=== PATIENT | female | born 1960 | race Caucasian/White ===

== ENCOUNTER 2019-08-24 15:44 | Outpatient (CLI) | payer BC, SELFPAY ==
--- NOTE | ~2019-08-24 | MM_ITS ---
EXAMINATION: screening [facility] BI w angle HISTORY: Screening mammogram TECHNIQUE: Craniocaudal and mediolateral oblique 3-D tomosynthesis images were obtained and synthetic 2-D images were generated. CAD analysis was submitted and interpreted. COMPARISON: 08/18/2018, 08/12/2017, 08/06/2017, 06/11/2016, 04/19/2014 BREAST PARENCHYMAL COMPOSITION: There are scattered areas of fibroglandular density. FINDINGS: An asymmetry of the outer left breast on the craniocaudal view has an appearance similar to prior mammograms. There is no evidence of suspicious mass, calcification, or architectural distortio n to suggest malignancy in either breast. There has been no suspicious interval change. IMPRESSION: 1. No mammographic evidence of malignancy. 2. Recommend routine screening mammography in one year. BI-RADS Category 2: Benign finding(s). Reviewed, dictated and finalized at location A.
== END 2019-08-24 15:45 | disposition home or self-care (01) ==
LOC: ANHIMG 15:48
PROVIDERS: PCP Family Medicine; Visit Provider Student in an Organized Health Care Education/Training Program
DX: Z12.31 Encounter for screening mammogram for malignant neoplasm of breast (principal)
CPT/HCPCS: 77063; 77067

== ENCOUNTER 2019-09-06 14:37 | Outpatient (CLI) | payer BC, SELFPAY ==
--- NOTE | ~2019-09-06 | DEXA_ITS ---
Bone Density Report Name: Winnie Dozier Age: 59 Sex: Female Ethnicity: White Date of : 1960 Indication: postmenopausal; Referring Provider: Selena Geronimo Study: Bone densitometry was performed. Exam Date: September 06, 2019 Accession number: [id number] Bone Density: Region BMD T-score Z-score Classification AP Spine (L1-L4) 1.409 3.3 4.5 Normal Femoral Neck (Left) 1.017 1.5 2.7 Normal Total Hip (Left) 1.183 2.0 2.8 Normal Total Hip Bilateral Avg 1.193 2.0 2.9 Normal Femoral Neck (Right) 1.077 2.1 3.2 Normal Total Hip (Right) 1.203 2.1 2.9 Normal World Health Organization criteria for BMD impression classify patients as: Normal (T-score at or above -1.0), Osteopenia (T-score between -1.0 and -2.5), or Osteoporosis (T-score at or below -2.5). 10-year Fracture Risk: FRAX not reported because: All T-scores for Spine Total, Hip Total, Femoral Neck at or above -1.0 Previous Exams: Region Exam Age BMD T-score BMD Change BMD Change Date g/cm2 vs Baseline vs Previous AP Spine(L1-L4) 09/06/2019 59 1.409 3.3 0.006(0.5%) -0.031(-2.2%)* 08/06/2017 57 1.440 3.6 0.038(2.7%)* 0.038(2.7%)* 05/08/2015 55 1.403 3.2 Total Hip(Left) 09/06/2019 59 1.183 2.0 -0.013(-1.1%) -0.003(-0.3%) 08/06/2017 57 1.186 2.0 -0.010(-0.8%) -0.010(-0.8%) 05/08/2015 55 1.196 2.1 Total Hip(Right) 09/06/2019 59 1.203 2.1 0.018(1.5%) -0.053(-4.3%)* 08/06/2017 57 1.256 2.6 0.071(6.0%)* 0.071(6.0%)* 05/08/2015 55 1.185 2.0 *Denotes significance at 95% confidence level, LSC for AP Spine = 0.022 g/cm2, LSC for Total Hip = 0.027 g/cm2 Clinical Information Provided by Patient: Has used the following medications: Vitamin D, Calcium Patient maximum height was 70 Menopause Age: 54 No regular weight bearing exercise Does not regularly consume dairy products Onset of menses at age 18 Number of children 0 Impression: The patient has normal bone mass. The BMD for the AP Spine(L1-L4) decreased, changing by -2.2% since the last DXA exam. The BMD for the Total Hip(Right) decreased, changing by -4.3% since the last DXA exam. Discussion: LOW RISK OF FRACTURE; BONE DENSITY IS WELL ABOVE THE MINIMUM DESIRABLE LEVEL AND ABOVE AVERAGE FOR AGE AND SEX AT ALL SKELETAL SITES TESTED. This person's bone density is above expected limits for age and sex. This is rarely clinically significant, but should be pursued if there are signif
== END 2019-09-06 14:38 | disposition home or self-care (01) ==
PROVIDERS: PCP Family Medicine; Visit Provider Student in an Organized Health Care Education/Training Program
DX: Z78.0 Asymptomatic menopausal state (principal)
CPT/HCPCS: 77080

== ENCOUNTER 2020-10-18 07:26 | Outpatient (CLI) | payer BC, SELFPAY ==
--- NOTE | ~2020-10-18 | MM_ITS ---
EXAMINATION: MM screening [facility] BI w angle HISTORY: Screening TECHNIQUE: Craniocaudal and mediolateral oblique 3-D tomosynthesis images were obtained and synthetic 2-D images were generated. CAD analysis was submitted and interpreted. COMPARISON: Comparison to multiple prior studies sequentially, with oldest reviewed study dated 05/16. BREAST PARENCHYMAL COMPOSITION: There are scattered areas of fibroglandular density. FINDINGS: There is no evidence of suspicious mass, calcification, or architectural distortion to sugg est malignancy in either breast. There has been no suspicious interval change. IMPRESSION: 1. No mammographic evidence of malignancy. 2. Recommend routine screening mammography in one year. BI-RADS Category 1: Negative Reviewed, dictated and finalized at location A.
== END 2020-10-18 07:27 | disposition home or self-care (01) ==
PROVIDERS: PCP Family Medicine; Visit Provider Student in an Organized Health Care Education/Training Program
DX: Z12.31 Encounter for screening mammogram for malignant neoplasm of breast (principal)
CPT/HCPCS: 77063; 77067

== ENCOUNTER 2021-12-24 15:37 | Outpatient (CLI) | payer BC, SELFPAY ==
--- NOTE | ~2021-12-24 | MM_ITS ---
EXAMINATION: MM screening [facility] BI w angle HISTORY: Screening mammogram TECHNIQUE: Craniocaudal and mediolateral oblique 3-D tomosynthesis images were obtained and synthetic 2-D images were generated. CAD analysis was submitted and interpreted. COMPARISON: 10/18/2020, 08/24/2019, 08/18/2018 BREAST PARENCHYMAL COMPOSITION: There are scattered areas of fibroglandular density. FINDINGS: There is no suspicious mass, calcification, or architectural distortion to suggest malignan cy in either breast. There has been no suspicious interval change. IMPRESSION: 1. No mammographic evidence of malignancy. 2. Recommend routine screening mammography in one year. BI-RADS Category 1: Negative Reviewed, dictated and finalized at location A.
== END 2021-12-24 15:38 | disposition home or self-care (01) ==
PROVIDERS: PCP Family Medicine; Visit Provider Student in an Organized Health Care Education/Training Program
DX: Z12.31 Encounter for screening mammogram for malignant neoplasm of breast (principal)
CPT/HCPCS: 77063; 77067

== ENCOUNTER 2021-12-25 14:05 | Outpatient (CLI) | payer BC, SELFPAY ==
--- NOTE | ~2021-12-25 | DEXA_ITS ---
Bone Density Report Name: YSABEL MCDONALD Age: 61 Sex: Female Ethnicity: White Date of : 1960 Indication: postmenopausal; screening for osteoporosis; Referring Provider: NIA HOLLINS Study: Bone densitometry was performed. Exam Date: December 25, 2021 Accession number: [id number] Bone Density: Region BMD T-score Z-score Classification AP Spine(L1-L4) 1.402 3.2 4.6 Normal Femoral Neck (Left) 0.976 1.1 2.4 Normal Total Hip (Left) 1.115 1.4 2.3 Normal Femoral Neck (Right) 1.058 1.9 3.2 Normal Total Hip (Right) 1.190 2.0 3.0 Normal Total Hip Mean 1.153 1.7 2.7 Normal World Health Organization criteria for BMD impression classify patients as: Normal (T-score at or above -1.0), Osteopenia (T-score between -1.0 and -2.5), or Osteoporosis (T-score at or below -2.5). 10-year Fracture Risk: FRAX not reported because: All T-scores for Spine Total, Hip Total, Femoral Neck at or above -1.0 Clinical Information Provided by Patient: Has used the following medications: Vitamin D, Calcium Patient maximum height was 70 Menopause Age: 54 Drinks caffeinated beverages Onset of menses at age 18 Number of children 0 Impression: The patient has normal bone mass. Discussion: LOW RISK OF FRACTURE; BONE DENSITY IS WELL ABOVE THE MINIMUM DESIRABLE LEVEL AND ABOVE AVERAGE FOR AGE AND SEX AT ALL SKELETAL SITES TESTED. This person's bone density is above expected limits for age and sex. This is rarely clinically significant, but should be pursued if there are significant musculoskeletal complaints. The patient should follow a healthful lifestyle (good nutrition with adequate calcium and vitamin D, and appropriate weight-bearing exercise). Follow-Up: Consider repeating this study in 5 years or sooner if there is some new clinical indication. Reported by: [facility] on 12/25/2021 2:27:00 PM. Reviewed, dictated and finalized at location ADeandre SERVIN
== END 2021-12-25 14:06 | disposition home or self-care (01) ==
LOC: ANHIMG 14:07
PROVIDERS: PCP Family Medicine; Visit Provider Student in an Organized Health Care Education/Training Program
DX: Z78.0 Asymptomatic menopausal state (principal)
CPT/HCPCS: 77080

== ENCOUNTER 2022-10-13 13:21 | Outpatient (CLI) | payer BC, SELFPAY ==
--- NOTE | ~2022-10-13 | XR_ITS ---
EXAM: XR abdomen/kub 1V DATE: 10/13/2022 13:45 HISTORY: BILATERAL NEPHROLITHIASIS . COMPARISON: 01/29/2018. FINDINGS: Clear lung bases. Normal bowel gas pattern. No organomegaly. Multiple bilateral renal calc ifications, similar in number to the prior study with progression of size. Largest calcification kristina ures 12 mm in the right upper pole. Pelvic phleboliths. Bone island in the right sacrum. Moderate mar ateral hip osteoarthritis. IMPRESSION: Bilateral nephrolithiasis. Reviewed, dictated and finalized at location K. IMPRESSION: Bilateral nephrolithiasis.
== END 2022-10-13 13:22 | disposition home or self-care (01) ==
PROVIDERS: PCP Family Medicine; Visit Provider Internal Medicine Nephrology
DX: N20.0 Calculus of kidney (principal)
CPT/HCPCS: 74018

== ENCOUNTER 2023-02-26 08:12 | Outpatient (CLI) | payer BC, SELFPAY ==
--- NOTE | ~2023-02-26 | MM_ITS ---
EXAMINATION: MM screening [facility] BI w angle HISTORY: Screening mammogram TECHNIQUE: Craniocaudal and mediolateral oblique 3-D tomosynthesis images were obtained and synthetic 2-D images were generated. CAD analysis was submitted and interpreted. COMPARISON: 12/24/2021, 10/18/2020, 08/24/2019, 08/18/2018 bilateral screening mammogram examinations 08/12/2017 diagnostic left mammogram 08/06/2017 bilateral screening mammogram BREAST PARENCHYMAL COMPOSITION: There are scattered areas of fibroglandular density. FINDINGS: There is no evidence of suspicious mass, calcification, or architectural distortion to sugg est malignancy in either breast. There has been no suspicious interval change. IMPRESSION: 1. No mammographic evidence of malignancy. 2. Recommend routine screening mammography in one year. BI-RADS Category 1: Negative Reviewed, dictated and finalized at location A.
== END 2023-02-26 08:13 | disposition home or self-care (01) ==
PROVIDERS: PCP Family Medicine; Visit Provider Registered Nurse
DX: Z12.31 Encounter for screening mammogram for malignant neoplasm of breast (principal)
CPT/HCPCS: 77063; 77067

== ENCOUNTER 2023-06-02 02:23 | Day surgery (SDC) | payer BC, SELFPAY ==
[2023-05-15 13:13] VITALS: BMI 29.4
--- NOTE | 2023-05-29 10:13 | SUR.PREOP ---
Patient called regarding upcoming procedure. Reviewed preop instructions, appointment times, and procedure prep.
[2023-06-02 06:59] VITALS: BP 147/73; PULSE 78; RESP 18; TEMP 36.1; O2SAT 100
--- NOTE | 2023-06-02 07:17 | WPDANESEPPF ---
Anes - Initial Pre Proc Eval Procedure: Operation Date: 06/02/23 08:00 Proposed Procedures p Screening Colonoscopy - Bakari Chaudhry MD Date/Time: 06/02/23 07:17 Surgeon: Bakari Chaudhry MD Pre Op Diagnosis: neoplasm screening Patient Data Age: 63 Gender: F Height: 1.78 m Weight: 91.3 kg Last Vital Signs Temp 36.1 C L 06/02/23 06:59 Pulse 78 06/02/23 06:59 Resp 18 06/02/23 06:59 BP 147/73 H 06/02/23 06:59 Pulse Ox 100 06/02/23 06:59 O2 Del Method Room Air 06/02/23 06:59 Allergies Allergy/AdvReac Type Severity Reaction Status Date / Time No Known Allergies Allergy Verified 06/02/23 06:58 Home Medications Medication Instructions Recorded Confirmed Type aspirin 81 mg tablet,delayed 81 mg PO DAILY 05/26/19 06/01/23 History release (Adult Low Dose Aspirin) vitamin B complex (B 1 tablet PO DAILY 08/16/19 06/02/23 History Complex-Vitamin B12 tablet) lactobacillus combination no.9 4 4,000 mmu cells PO DAILY 08/21/20 06/01/23 History billion cell capsule (Adult 50 Plus Probiotic) calcium carbonate 600 mg calcium 600 mg PO DAILY 01/10/21 06/01/23 History (1,500 mg) tablet (Calcium) cholecalciferol (vitamin D3) 25 25 mcg PO .every other day 01/10/21 06/01/23 History mcg (1,000 unit) capsule clotrimazole-betamethasone 1 1 applic topical BID #45 grams 05/29/22 06/01/23 Rx %-0.05 % topical cream dulaglutide 1.5 mg/0.5 mL 1.5 mg (0.5 mL) subcut WEEKLY #6 mL 09/29/22 06/01/23 Rx subcutaneous pen injector (Trulicity) potassium citrate 10 mEq (1,080 20 meq PO BID 09/29/22 06/02/23 History mg) tablet,extended release dapagliflozin propaned 5 2 tablet PO DAILY #180 ea 04/07/23 06/02/23 Rx mg-metformin ER 1,000 mg tablet, ext rel 24hr (Xigduo XR) levothyroxine 112 mcg tablet 112 mcg PO DAILY #90 tabs 04/07/23 06/01/23 Rx Patient hx anesthesia problems: none Family hx anesthesia problems: none Results Review: All pre-operative results and documents have been reviewed as part of the pre-operative evaluation. [facility] Past Medical History Medical History BMI 28.0-28.9,adult BMI 29.0-29.9,adult BMI 31.0-31.9,adult BMI greater than 30 Bone spur of ankle DM w/o complication type II Essential (primary) hypertension Hypothyroidism Mixed hyperlipidemia Need for vaccination Surgical History Surgical History History of appendectomy History of back surgery History of foot surgery Hx of colonoscopy Family History Family History Mother Hypertension Father Hypertension Family history of diabetes mellitus in first degree relative Family history of throat cancer Diabetes mellitus Sibling Hypertension Social History Social History Smoking status: Never smoker Second hand tobacco smoke exposure: Yes Alcohol intake: current Alcohol use details: occasional 1-2 per month Substance use: never Substance use type: does not use Do You Feel Safe in your Home?: Yes Lack of Transportation: No Lack of Food: Never True Current Housing: I Have Housing Concerned About Future Housing: No Difficulty Paying Gas/Electric Bills: No Difficulty Paying for Meds: No Currently Unemployed: No Education: Bachelor's Degree Difficulty w/ Childcare or Family Care: No Living arrangements: alone Occupation/Education: retired 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 Gender identity (if verbalized by the patient): Female Spiritual care concerns: No Anes - Eval Final PreProcedure Day of Procedure 06/02/23 07:17 Patient weight: overweight Heart: regular rate and rhythm Lungs: clear to auscultation Airway: Mallampati scale class II Neurological: alert and oriented Last oral intake
[2023-06-02] MEDS: LACTATED RINGERS 1,000 ML 150 ML IV CONT (07:18)
[2023-06-02 07:19] LABS: Glucose Point of Care 128 mg/dl (65-105)
--- NOTE | 2023-06-02 07:27 | PM.HPGS ---
History of Present Illness History of Present Illness Consent: Risks, benefits, and alternatives have been discussed and questions answered. Patient agrees to proceed with procedure. Chief complaint: neoplasm screening Narrative: Winnie Dozier is a 63 year old female Presents for screening colonoscopy. Patient's current weight appetite and bowel movements are normal. Patient denies abdominal pain. She has had no bleeding. Family history noncontributory. Previous colonoscopy 10 years ago was unremarkable. Review of Systems Review of Systems: Review of systems noncontributory. [facility] Past Medical History Medical History BMI 28.0-28.9,adult BMI 29.0-29.9,adult BMI 31.0-31.9,adult BMI greater than 30 Bone spur of ankle DM w/o complication type II Essential (primary) hypertension Hypothyroidism Mixed hyperlipidemia Need for vaccination Surgical History Surgical History History of appendectomy History of back surgery History of foot surgery Hx of colonoscopy Family History Family History Mother Hypertension Father Hypertension Family history of diabetes mellitus in first degree relative Family history of throat cancer Diabetes mellitus Sibling Hypertension Social History Social History Smoking status: Never smoker Second hand tobacco smoke exposure: Yes Alcohol intake: current Alcohol use details: occasional 1-2 per month Substance use: never Substance use type: does not use Do You Feel Safe in your Home?: Yes Lack of Transportation: No Lack of Food: Never True Current Housing: I Have Housing Concerned About Future Housing: No Difficulty Paying Gas/Electric Bills: No Difficulty Paying for Meds: No Currently Unemployed: No Education: Bachelor's Degree Difficulty w/ Childcare or Family Care: No Living arrangements: alone Occupation/Education: retired 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 Gender identity (if verbalized by the patient): Female Spiritual care concerns: No Meds Home Medications and Allergies Home Medications Medication Instructions Recorded Confirmed Type aspirin 81 mg tablet,delayed 81 mg PO DAILY 05/26/19 06/01/23 History release (Adult Low Dose Aspirin) vitamin B complex (B 1 tablet PO DAILY 08/16/19 06/02/23 History Complex-Vitamin B12 tablet) lactobacillus combination no.9 4 4,000 mmu cells PO DAILY 08/21/20 06/01/23 History billion cell capsule (Adult 50 Plus Probiotic) calcium carbonate 600 mg calcium 600 mg PO DAILY 01/10/21 06/01/23 History (1,500 mg) tablet (Calcium) cholecalciferol (vitamin D3) 25 25 mcg PO .every other day 01/10/21 06/01/23 History mcg (1,000 unit) capsule clotrimazole-betamethasone 1 1 applic topical BID #45 grams 05/29/22 06/01/23 Rx %-0.05 % topical cream dulaglutide 1.5 mg/0.5 mL 1.5 mg (0.5 mL) subcut WEEKLY #6 mL 09/29/22 06/01/23 Rx subcutaneous pen injector (Trulicity) potassium citrate 10 mEq (1,080 20 meq PO BID 09/29/22 06/02/23 History mg) tablet,extended release dapagliflozin propaned 5 2 tablet PO DAILY #180 ea 04/07/23 06/02/23 Rx mg-metformin ER 1,000 mg tablet, ext rel 24hr (Xigduo XR) levothyroxine 112 mcg tablet 112 mcg PO DAILY #90 tabs 04/07/23 06/01/23 Rx Allergies Allergy/AdvReac Type Severity Reaction Status Date / Time No Known Allergies Allergy Verified 06/02/23 06:58 Vital Signs Vital Signs - 24 hr 06/02/23 06:59 Temperature 96.9 F L Pulse Rate 78 Respiratory Rate 18 Blood Pressure 147/73 H Pulse Oximetry 100 Oxygen Delivery Room Air Exam Narrative: Physical exam reveals patient to be alert. Vital signs stable. HEENT exam is unremarkable. Patient is
[2023-06-02 08:38] VITALS: BP 103/52; PULSE 80; RESP 20; O2SAT 100
[2023-06-02 08:48] VITALS: BP 106/67; PULSE 76; RESP 17; O2SAT 100
[2023-06-02 08:58] VITALS: BP 119/78; PULSE 72; RESP 17; O2SAT 100
== END 2023-06-02 09:05 | disposition home or self-care (01) ==
PROVIDERS: PCP Family Medicine; Visit Provider Internal Medicine Gastroenterology
PROC: 0DJD8ZZ Inspection of Lower Intestinal Tract, Via Natural or Artificial Opening Endoscopic (ICD-10-PCS; CPT 45378; principal; 2023-06-02 08:00)
DX: Z12.11 Encounter for screening for malignant neoplasm of colon (principal); D12.2 Benign neoplasm of ascending colon; D12.4 Benign neoplasm of descending colon; D12.5 Benign neoplasm of sigmoid colon; K62.1 Rectal polyp; K57.30 Diverticulosis of large intestine without perforation or abscess without bleeding; K64.8 Other hemorrhoids; I10 Essential (primary) hypertension; E03.9 Hypothyroidism, unspecified; E78.2 Mixed hyperlipidemia; E11.9 Type 2 diabetes mellitus without complications; Z79.82 Long term (current) use of aspirin; Z79.84 Long term (current) use of oral hypoglycemic drugs; Z79.85 Long-term (current) use of injectable non-insulin antidiabetic drugs
CPT/HCPCS: 45385; 82948; 88305; J2704; J7120

== ENCOUNTER 2024-01-30 09:38 | Outpatient (CLI) | payer BC, SELFPAY ==
--- NOTE | ~2024-01-30 | XR_ITS ---
XR abdomen/kub 1V DATE: 01/30/2024 10:04 INDICATION: Bilateral nephrolithiasis TECHNIQUE: 2 AP views COMPARISON: 10/13/2022 KUB FINDINGS: Numerous bilateral renal calcifications are again noted, relatively stable in number and di stribution since 10/13/2022. No calcifications are noted overlying the course of the ureters. No visceromegaly is evident. Psoas shadows are intact. No evidence of bowel obstruction. Included skeletal structures are unremarkable other than prominent bilateral hip osteoarthritis. IMPRESSION: Persistent extensive bilateral nephrolithiasis Reviewed, dictated and finalized at Location A. Reviewed, dictated and finalized at location J.
== END 2024-01-30 09:39 | disposition home or self-care (01) ==
PROVIDERS: PCP Family Medicine; Visit Provider Internal Medicine Nephrology
DX: N20.0 Calculus of kidney (principal)
CPT/HCPCS: 74018

== ENCOUNTER 2024-03-15 14:37 | Outpatient (CLI) | payer BC, SELFPAY ==
--- NOTE | ~2024-03-15 | MM_ITS ---
EXAMINATION: MM screening van BI w angle HISTORY: Screening TECHNIQUE: Craniocaudal and mediolateral oblique 3-D tomosynthesis images were obtained and synthetic 2-D images were generated. CAD analysis was submitted and interpreted. COMPARISON: Comparison to multiple prior studies sequentially, with oldest reviewed study dated 11/2018. BREAST PARENCHYMAL COMPOSITION: Not dense: There are scattered areas of fibroglandular density. FINDINGS: There is no evidence of suspicious mass, calcification, or architectural distortion to sugg est malignancy in either breast. There has been no suspicious interval change. IMPRESSION: 1. No mammographic evidence of malignancy. 2. Recommend routine screening mammography in one year. BI-RADS Category 1: Negative Reviewed, dictated and finalized at location B.
== END 2024-03-15 14:38 | disposition home or self-care (01) ==
PROVIDERS: PCP Family Medicine; Visit Provider Nurse Practitioner Family
DX: Z12.31 Encounter for screening mammogram for malignant neoplasm of breast (principal)
CPT/HCPCS: 77063; 77067

== ENCOUNTER 2024-08-22 12:25 | Outpatient (CLI) | payer BC, SELFPAY ==
--- NOTE | ~2024-08-22 | MR_ITS ---
EXAMINATION: MR abdomen wo/w con DATE: 08/22/2024 14:03 INDICATION: Hepatomegaly, not elsewhere classified. TECHNIQUE: Magnetic resonance imaging (MRI) of the abdomen was performed without and with 20 mL Multi Licha intravenous contrast. COMPARISON: Abdomen MRI 04/05/2010 FINDINGS: There is diffuse hepatic steatosis. There is a 6 mm cyst in the liver. The gallbladder, spleen, pancr eas, and adrenal glands are normal. There is cortical thinning of the kidneys. There are no dilated l oops of bowel. There is diverticulosis of the colon without evidence of diverticulitis. There are no pathologically enlarged lymph nodes. There is no free intraperitoneal fluid. IMPRESSION: 1. Diffuse hepatic steatosis. Reviewed, dictated and finalized at location B.
--- OUTSIDE RECORDS SUMMARY | 2024-08-22 14:21 | XMS_ITS | Clinical Summary ---
Author Organization [facility] Address [address] [place] [address] Care Team Providers Care Children'S Tutor Name Role Phone Saman Greene MD Primary Care Provider [phone] Thuy Davey MD Unavailable [phone] Allergies No known active allergies Medications levothyroxine 112 MCG tablet Take 112 mcg by mouth every morning. Active potassium citrate CR 10 MEQ (1080 MG) tablet Take 20 mEq by mouth 2 (two) times daily. Active SITagliptin-met FORMIN HCl (JANUMET XR OR)Indications: states this is 50 mg tabs Take 2 tablets by mouth nightly. Indications: states this is 50 mg tabs Active Dapagliflozin Propanediol (FARXIGA) 10 MG Tab Take 10 mg by mouth daily. Active aspirin EC (ASPIRIN EC) 81 MG tablet Take 81 mg by mouth daily. Active B complex-C Cap capsule Take 1 capsule by mouth daily. Active calcium carb-cholecalci ferol 600-800 MG-UNIT tablet Take 1 tablet by mouth nightly. Active vitamin D3, cholecalciferol , 1000 UNIT Tab tabletIndicatio ns:every other evening Take 1 tablet by mouth see administration instructions. Indications: every other evening Active probiotic capsule Take 1 capsule by mouth nightly. Active ibuprofen 200 MG tablet Take 400 mg by mouth every 6 (six) hours as needed for Pain. Active acetaminophen 500 MG tablet Take 1,000 mg by mouth every 6 (six) hours as needed for Pain. Active HYDROcodone-kaila taminophen 5-325 MG tabletIndicatio ns:Acute Pain < 7 Day Supply Take 1 tablet by mouth every 6 (six) hours as needed for Pain. Indications: Acute Pain < 7 Day Supply 20 tablet 03/02/20 20 Active ibuprofen 800 MG tablet Take 1 tablet (800 mg total) by mouth every 8 (eight) hours as needed for Pain. 30 tablet 03/02/20 20 Active Active Problems No known active problems Family History Medical History Relation Comments Cancer Father liver cancer Hypertension Father Kidney Disease Father kidney stones Hypertension Mother Hypertension Sister Relation Status Comments Father (Age 66) of liver cancer Mother Alive Sister Social History Tobacco Use Types Packs/Day Years Used Date Smoking Tobacco: Never Smokeless Tobacco: Never Alcohol Use Standard Drinks/Week Comments Yes 1 (1 standard drink = 0.6 oz pur e alcohol) 3 or less drinks a month Comments No Sex and Gender Information Value Date Recorded Sex Assigned at Not on file Legal Sex Female 10:05 AM CDT Gender Identity Not on file Sexual Orientation Not on file Last Filed Vital Signs Vital Sign Reading Time Taken Comments Blood Pressure 147/66 03/02/2020 10:43 AM CDT Pulse 63 03/02/2020 10:43 AM CDT Temperature 36.7 C (98 F) 03/02/2020 10:43 AM CDT Respiratory Rate 14 03/02/2020 10:43 AM CDT Oxygen Saturation 96% 03/02/2020 10:43 AM CDT Inhaled Oxygen Concentration - - Weight 102.1 kg (225 lb) 02/27/2020 8:49 AM CDT Height 177.8 cm (5' 10 ) 02/27/2020 8:49 AM CDT Body Mass Index 32.28 02/27/2020 8:49 AM CDT Plan of Treatment Health Maintenance Due Date Last Done Comments Cervical Cancer Screening Pa p Smear (Age 30 to 64) Every 3 Years 1960 Colorectal Cancer Screening Colonoscopy (10 Years) 1962 Annual Physical 1965 Hepatitis C 1980 DTaP, Tdap and Td Vaccines ( 1 - Tdap) 1981 Cervical Cancer Screening Pa p with HPV Testing (Age 30 to 64) Every 5 Years 1992 Cervical Cancer Screening with HPV 1992 Mammogram Screening 2002 Zoster Vaccines (1 of 2) 2012 COVID-19 Vaccine (2023-2 5 season) 2024 Influenza Adult (#1) 2024 03/26/2019 RSV Immunization or 60+ Years (1 - 1-dose 75+ series) 2037 Meningococcal B Vaccine Aged Out No l onger eligible based on patient's age to complete this topic Meningococcal Vaccine Aged Out No betzy lachelle eligible based on patient's age to complete this topic Pneumococcal Vaccine: Pediat rics (0 to 5 Years) and At-Risk Patients (6 to 64 Years) Aged Out No longer eligi ble based on patient's age to complete this topic RSV Immunizations Under 20 Months Aged Out No longer eligible based on patient's age to complete this topic Medical Devices Implanted Type Area [employer] Round Attendant Device Identifier Shelf Expiration Date Model / Serial / Lot [employer] Suture [place] Suture #0 Implanted:Qty: 2 on 03/02/2020 by John Salmeron DPM at [facility] Right: [facility] [employer] 12/17/2024 [id number] / / [id number] [place] [address] [address] [place] [address] Care Teams Children'S Tutor Relationship Specialty Start Date End Date Saman Greene [place] [address] [address] PCP - General FAMILY PRACTICE 02/27/20 Thuy Dave[place] [address] [address] Referring Physician NEPHROLOGY 02/27/20
== END 2024-08-22 12:26 | disposition home or self-care (01) ==
PROVIDERS: PCP Family Medicine; Visit Provider Family Medicine
DX: R16.0 Hepatomegaly, not elsewhere classified (principal); K76.0 Fatty (change of) liver, not elsewhere classified
CPT/HCPCS: 74183; A9577

== ENCOUNTER 2024-11-01 12:41 | Outpatient (CLI) | payer BC, SELFPAY ==
--- NOTE | ~2024-11-01 | DEXA_ITS ---
Bone Density Report Name: YSABEL MCDONALD Age: 64 Sex: Female Ethnicity: White Date of : 1960 Indication: postmenopausal; screening for osteoporosis; Referring Provider: ELVIN CORDOVA Study: Bone densitometry was performed. Exam Date: November 01, 2024 Accession number: [id number] Bone Density: Region BMD T-score Z-score Classification AP Spine(L1-L4) 1.368 2.9 4.5 Normal Femoral Neck (Left) 1.044 1.8 3.1 Normal Total Hip (Left) 1.174 1.9 3.0 Normal Femoral Neck (Right) 1.056 1.9 3.3 Normal Total Hip (Right) 1.197 2.1 3.2 Normal Total Hip Mean 1.185 2.0 3.1 Normal World Health Organization criteria for BMD impression classify patients as: Normal (T-score at or above -1.0), Osteopenia (T-score between -1.0 and -2.5), or Osteoporosis (T-score at or below -2.5). 10-year Fracture Risk: FRAX not reported because: All T-scores for Spine Total, Hip Total, Femoral Neck at or above -1.0 Previous Exams: Region Exam Age BMD T-score BMD Change BMD Change Date g/cm2 vs Baseline vs Previous AP Spine (L1-L4) 11/01/2024 64 1.368 2.9 -0.035 (-2.5%) -0.034 (-2.4%) 12/25/2021 61 1.402 3.2 -0.001 (0.0%) -0.007 (-0.5%) 09/06/2019 59 1.409 3.3 0.006 (0.5%) -0.031 (-2.2%) 08/06/2017 57 1.440 3.6 0.038 (2.7%)* 0.038 (2.7%)* 05/08/2015 55 1.403 3.2 Total Hip(Left) 11/01/2024 64 1.174 1.9 -0.022 (-1.8%) 0.059 (5.2%)* 12/25/2021 61 1.115 1.4 -0.080 (-6.7%) -0.067 (-5.7%) 09/06/2019 59 1.183 2.0 -0.013 (-1.1%) -0.003 (-0.3%) 08/06/2017 57 1.186 2.0 -0.010 (-0.8%) -0.010 (-0.8%) 05/08/2015 55 1.196 2.1 Total Hip(Right) 11/01/2024 64 1.197 2.1 0.012 (1.0%) 0.007 (0.5%) 12/25/2021 61 1.190 2.0 0.006 (0.5%) -0.012 (-1.0%) 09/06/2019 59 1.203 2.1 0.018 (1.5%) -0.053 (-4.3%) 08/06/2017 57 1.256 2.6 0.071 (6.0%)* 0.071 (6.0%)* 05/08/2015 55 1.185 2.0 *Denotes significance at 95% confidence level, LSC for AP Spine = 0.022 g/cm2, LSC for Total Hip = 0.027 g/cm2 Clinical Information Provided by Patient: Has used the following medications: Vitamin D, Calcium Patient maximum height was 70 Menopause Age: 54 Drinks caffeinated beverages Onset of menses at age 18 Number of children 0 Impression: The patient has normal bone mass. The BMD for the AP Spine (L1-L4) decreased, changing by -2.4% since the last DXA exam. Discussion: LOW RISK OF FRACTURE; BONE DENSITY IS WELL ABOVE THE MINIMUM DESIRABLE LEVEL AND ABOVE AVERAGE FOR AGE AND SEX AT ALL SKELETAL SITES TESTED. This person's bone density is above expected limits for age and sex. This is rarely clinically significant, but should be pursued if there are significant musculoskeletal complaints. The patient should follow a healthful lifestyle (good nutrition with adequate calcium and vitamin D, and appropriate weight-bearing exercise). Follow-Up: Consider repeating this study in 3 to 4 years to reassess this patient's status, or sooner if there is some new clinical indication. Reported by: FIDE on 11/01/2024 1:20:00 PM. Reviewed, dictated and finalized at location A.
--- OUTSIDE RECORDS SUMMARY | 2024-11-01 12:44 | XMS_ITS ---
Author Organization [facility] Address [address] [place] [phone] Care Team Providers Care Operational Risk Manager Name Role Phone Saman Greene Primary Care Provider TONY Brink Unavailable [phone] Medications Medication SIG (Take, Route, Frequency, Duration) Notes Start Date End Date Status Synthroid 112 MCG 1 tablet in the morn ing on an empty stomach Orally Once a day Active Potassium Citrate ER 10 MEQ (1080 MG) 2 Orally TWICE A DAY Active Xigduo XR 2.5-1000 MG 1 tablet Orally Once a day Active Trulicity 1.5 MG/0.5ML as directed Subcutaneous Active Aspir-Low 81 MG 1 tablet Orally Once a day Active Potassium Citrate 10 MEQ 2 TABD Orally T WICE A DAY for 90 days 09/04/2022 Active Vitamin B Complex-C - as directed Orally Active Calcium 600 MG 1 tablet with meals Orally Twice a day Active Vitamin D3 3994394 UNIT/GM as directed Active Probiotic 250 MG as directed Orally Active Social History Sex Assigned At : Social History Observation Description Sex Assigned At Female Encounters Encounter Location Date Provider Diagnosis [facility] [address] [place] [address] [phone] 12/30/2023 TONY DAVEY Bilateral nephrolithiasis N20.0 ; Type 2 diabetes mellitus without complication, without long-term current use of insulin E11.9 ; Benign essential hypertension I10 and Acquired hypothyroidism E03.9 Assessments Encounter Date Diagnosis (ICD Code) Assessment Notes Treatment Notes Treatment Clinical Notes Section Notes 12/30/2023 Bilateral nephrolithiasis (ICD-10 - N20.0) 12/30/2023 Type 2 diabetes mellitus without complication, without long-term current use of insulin (ICD-10 - E11.9) 12/30/2023 Benign essential hypertension (ICD-10 - I10) 12/30/2023 Acquired hypothyroidism (ICD-10 - E03.9) Plan Of Treatment Pending Test Test Name Order Date Uric Acid, Serum 12/30/2023 Urinalysis, Complete 12/30/2023 Comp. Metabolic Panel (14) 12/30/2023 X ray : Kidneys, Ureters and Bladder (KU B) 12/30/2023 [id number]/RANDOM 12/30/2023 Next Appt Details Follow Up: 1 Year,you are do ing excellent- keep up the good work and keep taking your Potassium Citrate., Reason: Progress Notes * Winnie MCDONALDDOB:[birth year] (64 yo F)Acc No.[id number]:12/30/2023 Progress Notes Patient: Winnie ALVARADO Provider: Bulmaro Davey MD :1960 A ge:63 Y S ex:Female Date:12/30/2023 Address:[address] [place], [place] [id number] Pcp:Saman Greene Subjective: * Chief Complaints: * * Medical History: * Medications: T aking Probiotic 250 MG Capsule as directed Orally , Taking Vitamin D3 8259495 UNIT/GM Liquid as directed , Taking Calcium 600 MG Tablet 1 tablet with meals Orally Twice a day , Taking Vitamin B Complex-C - Capsule as directed Orally , Taking Aspir-Low 81 MG Tablet Delayed Release 1 tablet Orally Once a day , Taking Trulicity 1.5 MG/0.5ML Solution Pen-injector as directed Subcutaneous , Taking Xigduo XR 2.5-1000 MG Tablet Extended Release 24 Hour 1 tablet Orally Once a day , Taking Potassium Citrate ER 10 MEQ (1080 MG) Tablet Extended Release 2 Orally TWICE A DAY , Taking Synthroid 112 MCG Tablet 1 tablet in the morning on an empty stomach Orally Once a day , Taking Potassium Citrate 10 MEQ Tablet 2 TABD Orally TWICE A DAY Objective: * Vitals: Assessment: * Assessment: 1. B ilateral nephrolithiasis - N20.0 (Primary) 2 . T ype 2 diabetes mellitus without complication, without long-term current use of insulin - E11.9 3 . B enign essential hypertension - I10 4 . A cquired hypothyroidism - E03.9 ? Plan: * Treatment: * Follow Up: 1 Year,you are doing excellent- keep up the good work and keep taking your Potassium Citrate. * Billing Information: * Visit Code: 48317 Office Visit, Est Pt., Level 3. * Procedure Codes: * Electronic signature of PAWAN DAVEY MD on 11/01/2024 at 12:44 PM CDT Sign off status: Pending * Provider: Bulmaro Davey MD Date: 0 12/30/2023 Generated for Citlalli mcknight/Ann-Marie/Benito on: 0 11/01/2024 12:44 PM CDT
--- OUTSIDE RECORDS SUMMARY | 2024-11-01 12:44 | XMS_ITS | Clinical Summary ---
Author Organization [facility] Address [facility] [place] [address] Care Team Providers Care Seam Sewer Name Role Phone Saman Greene MD Primary Care Provider [phone] Thuy Davey MD Unavailable [phone] Allergies No known active allergies Medications levothyroxine [...] Screening with HPV 1992 Mammogram Screening 2002 Pneumococcal Vaccine: 50+ Ye ars (1 of 1 - PCV) 2012 Zoster Vaccines (1 of 2) 2012 COVID-19 Vaccine (2023-2 5 season) 2024 RSV Immunization or 60+ Years (1 - [...] this topic Medical Devices Implanted Type Area Golf Course Keeper Device Identifier Shelf Expiration Date Model / Serial / Lot Soldier Suture [place] Suture #0 Implanted:Qty: 2 on 03/02/2020 by John Salmeron DPM at [facility] Right: Laurie Doximity 12/17/2024 [id number] / / [id number] Insurance [facility] Care Teams Seam Sewer Relationship Specialty Start Date End Date Saman Greene [place] [address] [address] PCP - General FAMILY PRACTICE 02/27/20 Thuy Davey [place] [address] [address] Referring Physician NEPHROLOGY 02/27/20
--- OUTSIDE RECORDS SUMMARY | 2024-11-01 12:45 | XMS_ITS ---
Author Organization [facility] Address [address] [place] [phone] Care Team Providers Care Restaurant Cook Name Role Phone Saman Greene Primary Care Provider TONY Brink Unavailable [phone] Allergies No Known Allergies Medications Medication SIG (Take, Route, Frequency, Duration) [...] 1 tablet Orally Once a day Active Vitamin B Complex-C - as directed Orally Active Calcium 600 MG 1 tablet with meals Orally Twice a day Active Vitamin D3 7761856 UNIT/GM as directed Active Probiotic 250 MG as directed Orally Active Social History Sex Assigned At : Social History Observation Description Sex Assigned At Female Vital Signs Blood pressure systolic 126 mm Hg 12/30/19 24 Blood pressure diastolic 74 mm Hg 024 Heart Rate 88 /min 12/30/2023 Respiratory Rate 18 /min 12/30/2023 Temperature 97.3 degrees Fahrenheit 12/30/19 24 Oximetry 98 % 12/30/2023 Weight 202 lbs 12/30/2023 Weight-kg 91.63 kg 12/30/2023 Encounters Encounter Location Date Provider Diagnosis [facility] [address] [place] [phone] 12/30/2023 TONY DAVEY Bilateral nephrolithiasis N20.0 ; [...] Complete 12/30/2023 Comp. Metabolic Panel (14) 12/30/2023 2-Zqgusb-kyagjzgwe,Qn,24hr,Ur 12/30/2023 X ray : Kidneys, Ureters and Bladder (KU B) 12/30/2023 [id number]-NCBY/RANDOM 12/30/2023 Next Appt Details Follow Up: 1 Year,You are do ing awesome- Keep taking your potassium citrate and let's check on your stone burden., Reason: Progress Notes * Winnie MCDONALDDOB:[birth year] (64 yo F)Acc No.[id number]:12/30/2023 Progress Notes Patient: Winnie ALVARADO Provider: Bulmaro Davey MD :1960 A ge:63 Y S ex:Female Date:12/30/2023 Address:[address] [place], [place] [phone] Pcp:Saman Greene Subjective: * Chief Complaints: * * Medical History: M edical History Verified. * Surgical History: D enies Past Surgical History. * Hospitalization/Major Diagno stic Procedure: D enies Past Hospitalization. * Family History: N on-Contributory. * Medications: T aking Probiotic 250 MG Capsule as directed Orally , Taking Vitamin D3 1700429 UNIT/GM Liquid as directed , Taking Calcium [...] empty stomach Orally Once a day , Medication List reviewed and reconciled with the patient * Allergies: N .K.D.A. Objective: * Vitals: B P:126/74mm Hg, HR:88/min, RR:18/min, Temp:97.3F, Oxygen sat %:98%, Wt:202lbs, Wt-k.63 kg. Assessment: * Assessment: 1. B ilateral nephrolithiasis - N20.0 (Primary) 2 . T ype 2 diabetes mellitus without complication, without long-term current use of insulin - E11.9 3 . B enign essential hypertension - I10 4 . A cquired hypothyroidism - E03.9 ? Plan: * Treatment: 2.?Type 2 diabetes mellitus without complication, without long-term current use of insulin?LAB: Urinalysis, Complete ?LAB: Comp. Metabolic Panel (14) ?LAB: [id number]-XCTAGIT-NGWT/RANDOM * Labs: * L ab: 0-Uvauxb-dlsfhqdmq,Qn,24hr,Ur * Follow Up: 1 Year,You are doing awesome- Keep taking your potassium citrate and let's check on your stone burden. * Billing Information: * Visit Code: * Procedure Codes: * Electronic signature of PAWAN DAVEY MD on 11/01/2024 at 12:44 PM CDT Sign off status: Pending * Provider: Bulmaro Davey MD Date: 0 12/30/2023 Generated for Citlalli mcknight/Ann-Marie/Nubiasmitting on: 0 11/01/2024 12:44 PM CDT
--- OUTSIDE RECORDS SUMMARY | 2024-11-01 12:45 | XMS_ITS ---
Author Organization [facility] Address [address] [place] [phone] Care Team Providers Care Business Intelligence Director Name Role Phone Saman Greene Primary Care Provider TONY Brink Unavailable [phone] Medications Medication SIG (Take, Route, Frequency, Duration) Notes Start Date End Date Status Potassium Citrate ER 10 MEQ (1080 MG) 2 Orally TWICE A DAY for 90 days Active Potassium Citrate 10 MEQ 2 TABD Orally T WICE A DAY for 90 days 09/04/2022 Active Trulicity 1.5 MG/0.5ML as directed Subcutaneous Active Xigduo XR 2.5-1000 MG 1 tablet Orally Once a day Active Synthroid 112 MCG 1 tablet in the morn ing on an empty stomach Orally Once a day Active Vitamin D3 0349161 UNIT/GM as directed Active Probiotic 250 MG as directed Orally Active Vitamin B Complex-C - as directed Orally Active Calcium 600 MG 1 tablet with meals Orally Twice a day Active Aspir-Low 81 MG 1 tablet Orally Once a day Active Social History Sex Assigned At : Social History Observation Description Sex Assigned At Female Encounters Encounter Location Date Provider Diagnosis [facility] [address] [place] [phone] 08/12/2024 TONY DAVEY Plan Of Treatment Medication Medication Name Sig Start Date Stop Date Notes Potassium Citrate ER 10 MEQ (1080 MG) 2 Orally TWICE A DAY for 90 days Progress Notes * Winnie MCDONALDDOB:[birth year] (64 yo F)Acc No.[id number]:08/12/2024 Progress Notes Patient: Winnie ALVARADO Provider: Bulmaro Davey MD :1960 A ge:64 Y S ex:Female Date:08/12/2024 Address:[address] [place], [place] [phone] Pcp:Saman Greene Subjective: * Chief Complaints: * * HPI: T ransition of Care: refill of POTASSIUM CITRATE and send to new pharmacy [address] * Medical History: * Surgical History: * Hospitalization/Major Diagno stic Procedure: * Medications: T akingProbiotic 250 MG Capsule as directed Orally Vitamin D3 0298841 UNIT/GM Liquid as directed Calcium 600 MG Tablet 1 tablet with meals Orally Twice a day Vitamin B Complex-C - Capsule as directed Orally Aspir-Low 81 MG Tablet Delayed Release 1 tablet Orally Once a day Trulicity 1.5 MG/0.5ML Solution Pen-injector as directed Subcutaneous Xigduo XR 2.5-1000 MG Tablet Extended Release 24 Hour 1 tablet Orally Once a day Potassium Citrate ER 10 MEQ (1080 MG) Tablet Extended Release 2 Orally TWICE A DAY Synthroid 112 MCG Tablet 1 tablet in the morning on an empty stomach Orally Once a day Potassium Citrate 10 MEQ Tablet 2 TABD Orally TWICE A DAY Taking Probiotic 250 MG Capsule as directed Orally Taking Vitamin D3 6799744 UNIT/GM Liquid as directed Taking Calcium 600 MG Tablet 1 tablet with meals Orally Twice a day Taking Vitamin B Complex-C - Capsule as directed Orally Taking Aspir-Low 81 MG Tablet Delayed Release 1 tablet Orally Once a day Taking Trulicity 1.5 MG/0.5ML Solution Pen-injector as directed Subcutaneous Taking Xigduo XR 2.5-1000 MG Tablet Extended Release 24 Hour 1 tablet Orally Once a day Taking Potassium Citrate ER 10 MEQ (1080 MG) Tablet Extended Release 2 Orally TWICE A DAY Taking Synthroid 112 MCG Tablet 1 tablet in the morning on an empty stomach Orally Once a day Taking Potassium Citrate 10 MEQ Tablet 2 TABD Orally TWICE A DAY Objective: Assessment: Plan: * Treatment: * Procedure Codes: * Billing Information: * Visit Code: * Procedure Codes: * EXAMINER Sign off status: Completed true * Provider: Bulmaro Davey MD Date: 08/12/2024 Generated for Citlalli mcknight/Ann-Marie/Benito on: 11/01/2024 12:44 PM CDT
--- OUTSIDE RECORDS SUMMARY | 2024-11-01 12:45 | XMS_ITS | Patient Health Record ---
Author Organization [facility] Address [address] [place] [phone] Care Team Providers Care Manager Supplier Name Role Phone Saman Greene Primary Care Provider Dimitris DAVEYTONY Unavailable [phone] Allergies No Known Allergies Reason For Referral No Information Medications Medication SIG (Take, Route, Frequency, Duration) Notes Start Date End Date Status Potassium Citrate ER 10 MEQ (1080 MG) 2 Orally TWICE A DAY for 90 days Active Potassium Citrate 10 MEQ 2 TABD Orally T WICE A DAY for 90 days 09/04/2022 Active Vitamin D3 8459700 UNIT/GM as directed Active Probiotic 250 MG as directed Orally Active Vitamin B Complex-C - as directed Orally Active Calcium 600 MG 1 tablet with meals Orally Twice a day Active Trulicity 1.5 MG/0.5ML as directed Subcutaneous Active Aspir-Low 81 MG 1 tablet Orally Once a day Active Xigduo XR 2.5-1000 MG 1 tablet Orally Once a day Active Synthroid 112 MCG 1 tablet in the morn ing on an empty stomach Orally Once a day Active Social History Sex Assigned At : Social History Observation Description Sex Assigned At Female Problems Problem Type SNOMED Code ICD Code Onset Dates Problem Status W/U Status Risk Notes Problem 402387865 Type 2 diabetes mellitus without complication, without long-term current use of insulin (E11.9) Active confirmed Problem 870124778 Acquired hypothyroidism (E03.9) Active confirmed Problem 4312966 Benign essential hypertension (I10) Active confirmed Problem 26242135 Bilateral nephrolithiasis (N20.0) Active confirmed Encounters Encounter Location Date Provider Diagnosis [facility] [address] [phone] 12/30/2023 TONY DAVEY Bilateral nephrolithiasis N20.0 ; Type 2 diabetes mellitus without complication, without long-term current use of insulin E11.9 ; Benign essential hypertension I10 and Acquired hypothyroidism E03.9 [facility] [address] [place], [place] [phone] 08/12/2024 TONY DAVEY Assessments Encounter Date Diagnosis (ICD Code) Assessment [...] Kidneys, Ureters and Bladder (KU B) 12/30/2023 [id number]/RANDOM 12/30/2023 Insurance Providers Payer Name Payer Address Payer Phone Subscriber Number Group Number Insured Name Patient Relationship to Insured Coverage Start Date Coverage End Date Ruben BROWN [address] [place] [phone] [id number] Winnie MCDONALD Self - patient is the insured
== END 2024-11-01 12:42 | disposition home or self-care (01) ==
LOC: ANHIMG 12:43
PROVIDERS: PCP Family Medicine; Visit Provider Obstetrics & Gynecology
DX: Z78.0 Asymptomatic menopausal state (principal)
CPT/HCPCS: 77080

== ENCOUNTER 2025-05-19 14:55 | Outpatient (CLI) | payer BC, SELFPAY ==
--- NOTE | ~2025-05-19 | MM_ITS ---
EXAMINATION: MM screening van BI w angle HISTORY: Screening. TECHNIQUE: Craniocaudal and mediolateral oblique 3-D tomosynthesis images were obtained and synthetic 2-D images were generated. CAD analysis was submitted and interpreted. COMPARISON: 2023, 2022, and 2021. BREAST PARENCHYMAL COMPOSITION: Dense: The breasts are heterogeneously dense FINDINGS: No suspicious masses are seen. There are no suspicious calcifications. No unexplained architectural distortion is seen. There are no skin or nipple abnormalities identified. There is no adenopathy seen on the images submitted. IMPRESSION: No mammographic or sonographic evidence to suggest malignancy is seen. The patient may return to screening mammography as per ACR guidelines. BI-RADS 1 - Negative. Reviewed, dictated and finalized at location B. LE DEALER IMPRESSION: No mammographic or sonographic evidence to suggest malignancy is seen. The leonie ent may return to screening mammography as per ACR guidelines. BI-RADS 1 - Negative.
== END 2025-05-19 14:56 | disposition home or self-care (01) ==
LOC: ANHFOHIMG 14:58
PROVIDERS: PCP Family Medicine; Visit Provider Nurse Practitioner Family
DX: Z12.31 Encounter for screening mammogram for malignant neoplasm of breast (principal)
CPT/HCPCS: 77063; 77067